=== PATIENT | female | born 1985 | race American Indian/Alaskan Native ===

== ENCOUNTER 2016-11-07 16:31 | Emergency (ER) | payer SELFPAY ==
[2016-11-07 16:44] VITALS: BP 139/81
[2016-11-07 17:18] LABS: Hematocrit 33.7 % (30.3-42.9); Hemoglobin 11.4 gm/dl (10.1-14.3); Mean Corpuscular HGB Conc 34 % (30-34); Mean Corpuscular Hemoglobin 29 pg (28-32); Mean Corpuscular Volume 87 fl (79-97); Platelet Count 264 K/mm3 (140-440); Red Blood Count 3.89 M/mm3 (3.65-5.03); Red Cell Distribution Width 16.2 % (13.2-15.2); White Blood Count 7.9 K/mm3 (4.5-11.0)
[2016-11-07 17:30] LABS: Bilirubin,Urine NEG (Negative); Blood,Urine LG (Negative); Ketones,Urine NEG (Negative); Leukocyte Esterase,Urine TR (Negative); Mucus,Urine 3+ /HPF; Nitrite,Urine NEG (Negative); Urobilinogen,Urine < 2.0 mg/dL (<2.0)
== END 2016-11-07 21:58 | disposition left against medical advice (07) ==
LOC: ED 16:31
DX: O20.9 Hemorrhage in early pregnancy, unspecified (principal); Z53.21 Procedure and treatment not carried out due to patient leaving prior to being seen by health care provider
CPT/HCPCS: 36415; 81001; 84703; 85027; 86900; 86901